=== PATIENT | male | born 1965 | race Caucasian/White ===

== ENCOUNTER → 2016-09-17 | Outpatient (CLI) | payer BC ==
[2016-09-17 14:16] LABS: MEAN CORPUSCULAR HEMOGLOBIN 30.3 PG (26.0-34.0); MEAN CORPUSCULAR HGB CONC 34.5 g/dL (31.0-37.0); MEAN CORPUSCULAR VOLUME 88 FL (80-100); MEAN PLATELET VOLUME 8.7 FL (6.0-9.5); PLATELET COUNT 232 10^3uL (150-450); WHITE BLOOD COUNT 4.31 10^3uL (4.0-11.0)
[2016-09-17 14:38] LABS: ALBUMIN 4.3 g/dL (3.4-5.0); ANION GAP 13.8 MEQ/L (3-15); BAND NEUTROPHILS % 0 % (0-6); CALCULATED IONIZED CALCIUM 4.2 mg/dL (3.8-4.6); EOSINOPHILS % 1 % (0-4); LYMPHOCYTES # 0.6 #; MONOCYTES # 0.4 #; MONOCYTES % 9 % (3-11); PHOSPHORUS 4.3 mg/dL (2.4-4.9); RBC MORPH NORMAL (NORMAL); SEGMENTED NEUTROPHILS % 76 % (51-67); TOTAL CELLS COUNTED 100; TOTAL PROTEIN 7.2 g/dL (6.4-8.5)
== END ==
LOC: LAB 14:06
PROVIDERS: ATTEND Internal Medicine Hematology & Oncology
DX: C11.2 Malignant neoplasm of lateral wall of nasopharynx (principal)
CPT/HCPCS: 36415; 80053; 83615; 83735; 84100; 85007; 85027

== ENCOUNTER → 2016-09-20 | Outpatient (CLI) | payer BC | LOC: RAD 14:26 | PROVIDERS: ATTEND Internal Medicine Hematology & Oncology | DX: C11.2 Malignant neoplasm of lateral wall of nasopharynx (principal) | CPT/HCPCS: 70491; 70553; A9579; Q9967 ==

== ENCOUNTER → 2016-12-06 | Outpatient (CLI) | payer BC ==
[~2016-12-06] MED LIST: AC500T PO; IBUP200C PO; MAGN64TA8 PO
[2016-12-06 12:19] LABS: MEAN CORPUSCULAR HEMOGLOBIN 29.9 PG (26.0-34.0); MEAN CORPUSCULAR HGB CONC 33.8 g/dL (31.0-37.0); MEAN CORPUSCULAR VOLUME 89 FL (80-100); MEAN PLATELET VOLUME 8.9 FL (6.0-9.5); PLATELET COUNT 219 10^3uL (150-450); WHITE BLOOD COUNT 5.04 10^3uL (4.0-11.0)
[2016-12-06 12:31] LABS: ALBUMIN 4.5 g/dL (3.4-5.0); ANION GAP 15.3 MEQ/L (3-15); CALCULATED IONIZED CALCIUM 4.1 mg/dL (3.8-4.6); MAGNESIUM* 2.1 mg/dL (1.6-2.3); TOTAL PROTEIN 7.7 g/dL (6.4-8.5)
[2016-12-06 12:36] LABS: BAND NEUTROPHILS % 0 % (0-6); EOSINOPHILS % 1 % (0-4); LYMPHOCYTES # 0.8 #; MONOCYTES # 0.3 #; MONOCYTES % 6 % (3-11); SEGMENTED NEUTROPHILS % 78 % (51-67); TOTAL CELLS COUNTED 100
[2016-12-06 12:37] LABS: RBC MORPH NORMAL (NORMAL)
== END ==
LOC: LAB 12:06
PROVIDERS: ATTEND Internal Medicine Hematology & Oncology
DX: C11.2 Malignant neoplasm of lateral wall of nasopharynx (principal)
CPT/HCPCS: 36415; 80053; 83615; 83735; 84100; 85007; 85027

== ENCOUNTER → 2016-12-07 | Outpatient (CLI) | payer BC ==
--- NOTE | 2016-12-07 13:33 | Diagnostic Imaging Report ---
CLINICAL INDICATION: Patient has history of nasopharyngeal cancer. Three-month followup. EXAM: Axial CT scan of the neck soft tissue performed with 75 cc Omnipaque 300 IV contrast. Coronal sagittal reformatted images are created. COMPARISON: CT scan of the neck soft tissue with contrast dated 09/20/2016. FINDINGS: There is no significant change to the soft tissue fullness involving the right posterior nasopharynx which extends posteriorly to the high right carotid space in the skull base. There is stable fat stranding in the right para-pharyngeal fat and adjacent to the deep lobe of the right parotid gland which may be from post treatment changes. There is no evidence of developing mass. There is no interval significant lymphadenopathy. Wall up right mastoidectomy is seen with consolidation of the residual right mastoid air cells. There is consolidation in the right middle ear region again noted. Remainder of the neck soft tissue structures are unremarkable. The visualized vascular structures are patent. The thyroid gland and bilateral salivary glands show no other significant abnormality. Visualized upper lobes show no significant abnormality. Cervical spine is unremarkable. IMPRESSION: Stable soft tissue prominence of the right posterior nasopharynx which extends posteriorly to include the high right carotid space. There is no evidence of developing mass or lymphadenopathy. Dictated by: Dictated on workstation # [id number]
--- NOTE | 2016-12-07 13:53 | Diagnostic Imaging Report ---
CLINICAL INDICATION: Patient with nasopharyngeal cancer. Three-month checkup. EXAM: MRI of the brain performed without and with 15 cc of ProHance IV contrast. Sequences include axial DWI, ADC map, coronal gradient echo, axial T2, axial FLAIR, axial T1, axial proton density, axial T1 post IV contrast, and coronal post IV contrast. COMPARISON: MRI of the brain performed without and with IV contrast dated 09/20/2016. FINDINGS: There is stable soft tissue prominence of the right posterior nasopharynx which extends posteriorly to the high right carotid space region. There is no other developing mass seen. The brain parenchyma is stable with no significant interval abnormality. The pituitary gland, sella, and suprasellar regions are unremarkable as visualized. The brain parenchymal volume appears appropriate for patient's age. The [place] [place] vascular structures are unremarkable as visualized. Basal cisterns are unremarkable. There is no hydrocephalus. Besides postop changes, the extracranial soft tissue, skull, and orbits are unremarkable. There are wall up right mastoidectomy changes and fluid consolidation seen in right mastoid air cells. IMPRESSION: 1: Stable MRI of the brain with stable prominent soft tissue in the right posterior nasopharynx which extends to the high right carotid space. 2: The remainder of the brain MRI is unremarkable for age with no evidence of cranial or intracranial metastatic disease. 3: Again seen focal consolidation of the right mastoid air cells. Dictated by: Dictated on workstation # [id number]
== END ==
LOC: RAD 11:24
PROVIDERS: ATTEND Internal Medicine Hematology & Oncology
DX: C11.2 Malignant neoplasm of lateral wall of nasopharynx (principal)
CPT/HCPCS: 70491; 70553; A9579; Q9967